=== PATIENT | female | born 1995 | race Caucasian/White ===

== ENCOUNTER → 2017-08-06 16:54 | Outpatient (CLI) | payer OTHER, SELFPAY ==
[2017-08-09 20:07] LABS: HSV 1 By PCR Negative (Negative)
[2017-08-11 08:45] LABS: HSV 2 By PCR Positive (Negative)
== END ==
PROVIDERS: Visit Provider Obstetrics & Gynecology
DX: N89.8 Other specified noninflammatory disorders of vagina (principal); N76.6 Ulceration of vulva
CPT/HCPCS: 87529

== ENCOUNTER → 2018-12-29 | Outpatient (CLI) | payer OTHER, SELFPAY ==
[2018-12-29 11:46] LABS: hCG Titer Quant., Serum < 1 mIU/mL (1-3)
== END | disposition home or self-care (01) ==
LOC: WOBLAB 09:04
PROVIDERS: Family Provider Family Medicine; PCP Family Medicine; Visit Provider Obstetrics & Gynecology
DX: Z30.42 Encounter for surveillance of injectable contraceptive (principal); Z79.899 Other long term (current) drug therapy
CPT/HCPCS: 36415; 84144; 84702

== ENCOUNTER → 2020-07-27 | Outpatient (CLI) | payer OTHER, SELFPAY ==
[2020-08-03 03:07] LABS: Chlamydia By Nucleic Acid AMP Negative (Negative)
[2020-08-03 09:54] LABS: Gonococcus By Nucleic Acid AMP Negative (Negative)
[2020-08-03 09:55] LABS: HPV Reflexed? NOT INDICATED
== END | disposition home or self-care (01) ==
LOC: LABSPEC 12:03
PROVIDERS: PCP Family Medicine; Visit Provider Obstetrics & Gynecology
DX: Z12.4 Encounter for screening for malignant neoplasm of cervix (principal); Z11.3 Encounter for screening for infections with a predominantly sexual mode of transmission
CPT/HCPCS: 87491; 87591; 88142

== ENCOUNTER → 2023-05-20 | Outpatient (CLI) | payer BC, SELFPAY ==
[2023-05-20 17:59] LABS: Absolute Lymphocyte Count 1.76 X10^3/uL (0.83-4.51); Absolute Neutrophil Count 3.2 X10^3/uL (2.0-7.7); Basophil# 0.03 X10^3/uL; Basophil% 0.5 % (0-1); Eosinophil# 0.09 X10^3/uL; Eosinophils% 1.6 % (0-5); Hematocrit 43.8 % (37-47); Hemoglobin 14.6 g/dL (12.0-15.0); Lymphocyte # 1.76 X10^3/ul (0.83-4.51); Lymphocyte % 31.7 % (19-41); Mean Corp Hgb Conc 33.3 g/dL (32-36); Mean Corpuscular Hgb 29.9 pg (27.0-32.0); Mean Corpuscular Volume 89.8 fL (81-99); Mean Platelet Vol. 11.2 fl (6.2-12.0); NRBC Flagged by Analyzer 0 % (0-5); Neutrophil # 3.16 X10^3/uL (2.7-7.7); Neutrophil % 56.8 % (47-70); Platelet Count 218 K/mm3 (150-450); RBC Distribution Width CV 11.8 % (11.6-14.6); RBC Distribution Width SD 38.3 fl (35.1-43.9); Red Blood Count 4.88 M/mm3 (4.2-5.4); White Blood Count 5.6 K/mm3 (4.4-11.0)
[2023-05-20 18:11] LABS: ALB/GLOB Ratio 1.1 RATIO (0.9-2.4); AST(SGOT) 24 U/L (15-37); Alanine Aminotransfer ALT/SGPT 28 U/L (13-56); Alkaline Phosphatase 60 U/L (45-117); Anion Gap 7 (5-15); BUN 9 mg/dL (7-18); BUN/Creat Ratio 12.4 RATIO (10-20); Calcium,Total 8.6 mg/dL (8.5-10.1); Chloride 108 mmol/L (98-107); Creatinine, Serum 0.73 mg/dL (0.55-1.02); EST Glomerular Filtration Rate 102 mL/min (>60); Est Glom Filt Rate - Afr Amer 123 mL/min (>60); Globulin 3.7 g/dL (2.2-4.2); Glucose 89 mg/dL (74-106); Potassium 3.5 mmol/L (3.5-5.1); Protein, Total 7.7 g/dL (6.4-8.2); Rheumatoid Factor < 10.0 IU/mL (<15); Sodium Level 140 mmol/L (136-145)
[2023-05-20 18:39] LABS: Erythrocyte Sedimentation Rate 11 mm/hr (0-30)
[2023-05-20 18:45] LABS: Hepatitis B Surface Antibody Non-Reactive; Hepatitis B Surface Antigen Non-Reactive (Nonreactive); Hepatitis C Antibody Non-Reactive (Nonreactive)
[2023-05-22 12:09] LABS: ANTINUCLEAR ANTIBODIES DIRECT Negative (Negative); CCP IgG Antibodies 3 units (0-19)
== END | disposition home or self-care (01) ==
PROVIDERS: Referring Provider Internal Medicine Rheumatology; Visit Provider Internal Medicine Rheumatology
DX: L40.59 Other psoriatic arthropathy (principal); M79.7 Fibromyalgia
CPT/HCPCS: 36415; 80053; 85025; 85652; 86038; 86140; 86200; 86431; 86706; 86803; 87340

== ENCOUNTER → 2023-06-18 | Outpatient (CLI) | payer BC, SELFPAY ==
[2023-06-18 15:17] LABS: Internal QC Validated? YES +Cl - CLEAR BKGD; Pregnancy, Urine Negative Negative
== END | disposition home or self-care (01) ==
LOC: MTLAB 14:03
PROVIDERS: Referring Provider Internal Medicine Rheumatology; Visit Provider Internal Medicine Rheumatology
DX: L40.59 Other psoriatic arthropathy (principal); M79.7 Fibromyalgia; Z79.899 Other long term (current) drug therapy
CPT/HCPCS: 81025

== ENCOUNTER → 2024-03-06 | Outpatient (CLI) | payer BC, SELFPAY ==
[2024-03-09 21:07] LABS: Chlamydia By Nucleic Acid AMP Negative (Negative); Gonococcus By Nucleic Acid AMP Negative (Negative)
[2024-03-13 13:36] LABS: HPV Reflexed? NOT INDICATED
== END | disposition home or self-care (01) ==
LOC: LAB 16:42
PROVIDERS: Referring Provider Obstetrics & Gynecology; Visit Provider Obstetrics & Gynecology
DX: Z34.90 Encounter for supervision of normal pregnancy, unspecified, unspecified trimester (principal); Z3A.00 Weeks of gestation of pregnancy not specified
CPT/HCPCS: 87086; 87088; 87491; 87591; 88175; G0145

== ENCOUNTER → 2024-03-18 | Outpatient (CLI) | payer BC, SELFPAY ==
[2024-03-18 17:51] LABS: Absolute Lymphocyte Count 2.01 X10^3/uL (0.83-4.51); Absolute Neutrophil Count 5.9 X10^3/uL (2.0-7.7); Basophil# 0.04 X10^3/uL; Basophil% 0.5 % (0-1); Eosinophils% 2.3 % (0-5); Hematocrit 35.9 % (37-47); Hemoglobin 12.4 g/dL (12.0-15.0); Lymphocyte # 2.01 X10^3/ul (0.83-4.51); Lymphocyte % 22.9 % (19-41); Mean Corp Hgb Conc 34.5 g/dL (32-36); Mean Corpuscular Hgb 30.2 pg (27.0-32.0); Mean Corpuscular Volume 87.3 fL (81-99); Monocyte# 0.62 X10^3/uL; Monocyte% 7.1 % (0-10); NRBC Flagged by Analyzer 0 % (0-5); Neutrophil # 5.86 X10^3/uL (2.7-7.7); Neutrophil % 66.9 % (47-70); Platelet Count 210 K/mm3 (150-450); RBC Distribution Width CV 11.9 % (11.6-14.6); RBC Distribution Width SD 38.3 fl (35.1-43.9); Red Blood Count 4.11 M/mm3 (4.2-5.4); White Blood Count 8.8 K/mm3 (4.4-11.0)
[2024-03-18 18:50] LABS: HIV - WCH Non-Reactive (Nonreactive); Hepatitis B Surface Antigen Non-Reactive (Nonreactive); Hepatitis C Antibody Non-Reactive (Nonreactive); Rubella IgG Reactive (Nonreactive); Syphilis Antibodies Non-reactive
== END | disposition home or self-care (01) ==
LOC: MTLAB 13:54
PROVIDERS: Referring Provider Obstetrics & Gynecology; Visit Provider Obstetrics & Gynecology
DX: Z34.81 Encounter for supervision of other normal pregnancy, first trimester (principal); Z3A.00 Weeks of gestation of pregnancy not specified
CPT/HCPCS: 36415; 85025; 86703; 86762; 86780; 86803; 86850; 86900; 86901; 87340

== ENCOUNTER → 2024-07-01 | Outpatient (CLI) | payer BC, SELFPAY ==
[2024-07-01 10:54] LABS: Absolute Lymphocyte Count 1.53 X10^3/uL (0.83-4.51); Absolute Neutrophil Count 5.7 X10^3/uL (2.0-7.7); Basophil# 0.04 X10^3/uL; Basophil% 0.5 % (0-1); Eosinophil# 0.07 X10^3/uL; Eosinophils% 0.9 % (0-5); Hematocrit 35.6 % (37-47); Hemoglobin 11.8 g/dL (12.0-15.0); Lymphocyte # 1.53 X10^3/ul (0.83-4.51); Lymphocyte % 19.6 % (19-41); Mean Corp Hgb Conc 33.1 g/dL (32-36); Mean Corpuscular Hgb 30.8 pg (27.0-32.0); Mean Platelet Vol. 10.7 fl (6.2-12.0); Monocyte# 0.41 X10^3/uL; Monocyte% 5.2 % (0-10); NRBC Flagged by Analyzer 0 % (0-5); Neutrophil # 5.73 X10^3/uL (2.7-7.7); Neutrophil % 73.3 % (47-70); Platelet Count 193 K/mm3 (150-450); RBC Distribution Width CV 12.5 % (11.6-14.6); RBC Distribution Width SD 42.6 fl (35.1-43.9); Red Blood Count 3.83 M/mm3 (4.2-5.4); White Blood Count 7.8 K/mm3 (4.4-11.0)
[2024-07-01 10:58] LABS: Glucose Challenge Gest 1H 50g 121 mg/dL (70-140)
[2024-07-01 11:33] LABS: HIV - WCH Non-Reactive (Nonreactive); Syphilis Antibodies Non-reactive
== END | disposition home or self-care (01) ==
LOC: BWCLAB 10:02
PROVIDERS: Referring Provider Nurse Practitioner Women's Health; Visit Provider Nurse Practitioner Women's Health
DX: Z34.92 Encounter for supervision of normal pregnancy, unspecified, second trimester (principal); Z3A.22 22 weeks gestation of pregnancy
CPT/HCPCS: 36415; 82950; 85025; 86703; 86780

== ENCOUNTER → 2024-09-17 | Outpatient (CLI) | payer BC, SELFPAY | END | disposition home or self-care (01) | LOC: LABSPEC 11:25 | PROVIDERS: Referring Provider Obstetrics & Gynecology; Visit Provider Obstetrics & Gynecology | DX: Z34.02 Encounter for supervision of normal first pregnancy, second trimester (principal) | CPT/HCPCS: 87081 ==

== ENCOUNTER 2024-09-18 12:10 | Outpatient (CLI) | payer BC, SELFPAY ==
[2024-09-18 12:21] VITALS: BMI 34.4
[2024-09-18 12:35] VITALS: PULSE 76; O2SAT 98
[2024-09-18 12:41] VITALS: BP 129/83; PULSE 92; RESP 17
[2024-09-18 13:15] LABS: ROM Internal Control Test YES-OK TO RESULT pt. (Internal QC); ROM Patient Test Negative (Negative); Record Kit Lot#, ROM+ K3294
--- NOTE | 2024-09-19 08:06 | OB.TRI.HP_ITS ---
HPI - General General Date of Service: 09/18/24 HPI Narrative HUA BAKER, is a 28 F who presents at 37.3 with questionable leaking of fluid. denies vb/ctx. has good fm. Maternal Data Information JOHN Calculator Estimated Delivery Date Method Current WG Current Estimate 10/07/24 LMP (Certain) 37w 3d PFSH PFSH Home Medications ?Medication ?Instructions ?Recorded ?Last Taken ?Type docosahexaenoic acid 200 mg mg PO 02/21/24 Unknown His tory capsule ( DHA) valacyclovir 500 mg tablet 500 mg PO BID #60 tabs 08/1609/18/24 Rx (Valtrex) Allergy/AdvReac Type Severity Reaction Status Date / Time No Known Allergies Allergy Verified 09/18/24 12:30 Family History Grandfather Myocardial infarction Surgical History History of surgery on arm Social History adopted: No household members: spouse and other details: joint custody of step daughter current occupational status: employed 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 current occupational exposures/hazards: No pets and animals: Yes ( taking care of litterbox) pets and animals: cat(s) and dog(s) history of recent travel: Yes ([facility] - October 2023, [place], [place] - December 2023) out of state: Yes out of country: No sexually active: Yes Smoking Status: Never smoker alcohol intake: former details: Socially, not while substance use type: does not use well-balanced diet: daily or most days caffeine: Yes Type: coffee eating out: 1-3 times/week during the past year weight has: remained stable what type of physical activity do you participate in: other details: Dumbbells, body weights frequency: 3-4 times per week duration: 45-60 minutes/day sherrie/spiritism: None seatbelt use: always do you feel safe at home: Yes 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 : yes PP control planned: discussed discussed possible routes of delivery and associated risks: [] special requests: [] Plans Covid status: [] Flu vaccine: [] Tdap vaccine: Rhogam: NA LARC form signed: yes Problem list reviewed and updated with the most current plan of care details and appropriate orders placed. Relevant counseling for the gestational age provided. Continue routine care and follow up unless otherwise noted in visit notes/problem list details OB Flowsheet Initial Weight: Not Recorded Date -?-?-?-?-?-?-?-?-?-?-?-?- EGA Weight BP Urine Prot -?-?-?-?-?-?-?-?-?-?-?-?- Glucose FHR FuHt Pres Dilation -?-?-?-?-?-?-?-?-?-?-?-?- Effaced St Visit Note 03/06/24 -?-?-?-?-?-?-?-?-?-?-?-?- 9w 2d 153 lb 127/78 -?-?-?-?-?-?-?-?-?-?-?-?- 180 -?-?-?-?-?-?-?-?-?-?-?-?- SM- CRL 2.3 cm c ons with LMP 04/01/24 -?-?-?-?-?-?-?-?-?-?-?-?- 13w 0d 156 lb 4 oz 130/83 Nega tive -?-?-?-?-?-?-?-?-?-?-?-?- Negative 147 -?-?-?-?-?-?-?-?-?-?-?-?- JV- CRL measurin g 1 week ahead on the room 2 scan. patient reassured. will not change due date and anatomy scan ordered. 05/07/24 -?-?-?-?-?-?-?-?-?-?-?-?- 18w 1d 161 lb 122/83 -?-?-?-?-?-?-?-?-?-?-?-?- 155 -?-?-?-?-?-?-?-?-?-?-?-?- KW- no vb/lof/ct x. good fm. anatomy US scheduled. 06/03/24 -?-?-?-?-?-?-?-?-?-?-?-?- 22w 0d 162 lb 6 oz 120/82 Nega tive -?-?-?-?-?-?-?-?-?-?-?-?- Negative 161 -?-?-?-?-?-?-?-?-?-?-?-?- MH-No VB, LOF. G ood FM. Larc. Denies concerns 07/01/24 -?-?-?-?-?-?-?-?-?-?-?-?- 26w 0d 169 lb 4 oz 110/68 Nega tive -?-?-?-?-?-?-?-?-?-?-?-?- Negative 160 27 -?-?-?-?-?-?-?-?-?-?-?-?- JV- no lof, vagi nal bleeding, or cramping. gct done today. patient declines flu shot. 07/14/24 -?-?-?-?-?-?-?-?-?-?-?-?- 27w 6d 170 lb 2 oz 112/78 Nega tive -?-?-?-?-?-?-?-?-?-?-?-?- Negative 138 28 -?-?-?-?-?-?-?-?-?-?-?-?- -No VB, LOF. G ood Fm. Few BH CTX, resolve w/rest. 07/29/24 -?-?-?-?-?-?-?-?-?-?-?-?- 30w 0d 174 lb 8 oz 114/77 Nega tive -?-?-?-?-?-?-?-?-?-?-?-?- Negative 140 30 Cephalic -?-?-?-?-?-?-?-?-?-?-?-?- SM- no vb lof go od f nor egaurl ctx 08/13/24 -?-?-?-?-?-?-?-?-?-?-?-?- 32w 1d 177 lb 8 oz 121/76 -?-?-?-?-?-?-?-?-?-?-?-?- 140 33 -?-?-?-?-?-?-?-?-?-?-?-?- KW- no vb/lof/ct x. good fm. Tdap today 08/27/24 -?-?-?-?-?-?-?-?-?-?-?-?- 34w 1d 177 lb 8 oz 120/79 Nega tive -?-?-?-?-?-?-?-?-?-?-?-?- Negative 165 34 -?-?-?-?-?-?-?-?-?-?-?-?- JV- no lof, vagi nal bleeding, or dec fm. no complaints other than states that she had a lot of pain after her tdap shot. 09/08/24 -?-?-?-?-?-?-?-?-?-?-?-?- 35w 6d 179 lb 8 oz 119/79 Trac e -?-?-?-?-?-?-?-?-?-?-?-?- Negative 145 36 Cephalic -?-?-?-?-?-?-?-?-?-?-?-?- KW- no vb/lof/ct x. good fm GBS next visit. V[place] sent to pharmacy. BS US done-cephalic 09/17/24 -?-?-?-?-?-?-?-?-?-?-?-?- 37w 1d 181 lb 6 oz 113/79 Nega tive -?-?-?-?-?-?-?-?-?-?-?-?- Negative 150 38 Cephalic 1 .5 -?-?-?-?-?-?-?-?-?-?-?-?- 60 -2 JV- no lof , vaginal bleeding, or dec fm gbs collected. Notes Visit Date: 07/29/24 Last Updated by: Mariana Gomez MD NST FHR Rate Baby A Baseline: 135 Variability:: Moderate Accelerations:: 15 x 15 Decelerations:: None NST Reactive:: Yes FHR Category:: Category I Uterine Activity:: irregular Assessment & Plan (1) No leakage of amniotic fluid into vagina: COMMENT: rom plus neg. cat 1 tracing d/c home PLAN: Plan Patient presents for triage evaluation secondary to questionable lof. negative rom plus. FHT: Moderate variability reactive no decelerations category I tracing [place]: irreg Contractions Assessment and plan: Reactive NST, reassuring maternal and status patient discharged to home to follow-up as needed and for next appt.. See problem list details for additional plan information. Charges/Coding Procedures Urinary/Genital 52xxx-59xxx: 98256-67 non-stress test Interp
--- NOTE | 2024-09-19 08:06 | OB.TRI.NOTE ---
HPI - General General Date of Service: 09/18/24 HPI Narrative HUA BAKER, is a 28 F who presents at 37.3 with questionable leaking of fluid. denies vb/ctx. has good fm. Maternal Data Information JOHN Calculator Estimated Delivery Date Method Current WG Current Estimate 10/07/24 LMP (Certain) 37w 3d PFSH PFSH Home Medications ?Medication ?Instructions ?Recorded ?Last Taken ?Type docosahexaenoic acid 200 mg mg PO 02/21/24 Unknown History capsule ( DHA) valacyclovir 500 mg tablet 500 mg PO BID #60 tabs 09/08/24 09/18/24 Rx (Valtrex) Allergy/AdvReac Type Severity Reaction Status Date / Time No Known Allergies Allergy Verified 09/18/24 12:30 Family History Grandfather Myocardial infarction Surgical History History of surgery on arm Social History adopted: No household members: spouse and other details: joint custody of step daughter current occupational status: employed 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 current occupational exposures/hazards: No pets and animals: Yes ( taking care of litterbox) pets and animals: cat(s) and dog(s) history of recent travel: Yes ([facility] - October 2023, [place], [place] - December 2023) out of state: Yes out of country: No sexually active: Yes Smoking Status: Never smoker alcohol intake: former details: Socially, not while substance use type: does not use well-balanced diet: daily or most days caffeine: Yes Type: coffee eating out: 1-3 times/week during the past year weight has: remained stable what type of physical activity do you participate in: other details: Dumbbells, body weights frequency: 3-4 times per week duration: 45-60 minutes/day sherrie/confucianism: None seatbelt use: always do you feel safe at home: Yes 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 : yes PP control planned: discussed discussed possible routes of delivery and associated risks: [] special requests: [] Plans Covid status: [] Flu vaccine: [] Tdap vaccine: Rhogam: NA LARC form signed: yes Problem list reviewed and updated with the most current plan of care details and appropriate orders placed. Relevant counseling for the gestational age provided. Continue routine care and follow up unless otherwise noted in visit notes/problem list details OB Flowsheet Initial Weight: Not Recorded Date <del>?</del> EGA Weight BP Urine Prot <del>?</del> Glucose FHR FuHt Pres Dilation <del>?</del> Effaced St Visit Note 03/06/24 <del>?</del> 9w 2d 153 lb 127/78 <del>?</del> 180 <del>?</del> SM- CRL 2.3 cm cons with LMP 04/01/24 <del>?</del> 13w 0d 156 lb 4 oz 130/83 Negative <del>?</del> Negative 147 <del>?</del> JV- CRL measuring 1 week ahead on the room 2 scan. patient reassured. will not change due date and anatomy scan ordered. 05/07/24 <del>?</del> 18w 1d 161 lb 122/83 <del>?</del> 155 <del>?</del> KW- no vb/lof/ctx. good fm. anatomy US scheduled. 06/03/24 <del>?</del> 22w 0d 162 lb 6 oz 120/82 Negative <del>?</del> Negative 161 <del>?</del> MH-No VB, LOF. Good FM. Larc. Denies concerns 07/01/24 <del>?</del> 26w 0d 169 lb 4 oz 110/68 Negative <del>?</del> Negative 160 27 <del>?</del> JV- no lof, vaginal bleeding, or cramping. gct done today. patient declines flu shot. 07/14/24 <del>?</del> 27w 6d 170 lb 2 oz 112/78 Negative <del>?</del> Negative 138 28 <del>?</del> MH-No VB, LOF. Good Fm. Few BH CTX, resolve w/rest. 07/29/24 <del>?</del> 30w 0d 174 lb 8 oz 114/77 Negative <del>?</del> Negative 140 30 Cephalic <del>?</del> SM- no vb lof good f nor egaurl ctx 08/13/24 <del>?</del> 32w 1d 177 lb 8 oz 121/76 <del>?</del> 140 33 <del>?</del> KW- no vb/lof/ctx. good fm. Tdap today 08/27/24 <del>?</del> 34w 1d 177 lb 8 oz 120/79 Negative <del>?</del> Negative 165 34 <del>?</del> JV- no lof, vaginal bleeding, or dec fm. no complaints other than states that she had a lot of pain after her tdap shot. 09/08/24 <del>?</del> 35w 6d 179 lb 8 oz 119/79 Trace <del>?</del> Negative 145 36 Cephalic <del>?</del> KW- no vb/lof/ctx. good fm GBS next visit. Valtrex sent to pharmacy. BS US done-cephalic 09/17/24 <del>?</del> 37w 1d 181 lb 6 oz 113/79 Negative <del>?</del> Negative 150 38 Cephalic 1.5 <del>?</del> 60 -2 JV- no lof, vaginal bleeding, or dec fm gbs collected. Notes Visit Date: 07/29/24 Last Updated by: Mariana Gomez MD NST FHR Rate Baby A Baseline: 135 Variability:: Moderate Accelerations:: 15 x 15 Decelerations:: None NST Reactive:: Yes FHR Category:: Category I Uterine Activity:: irregular Assessment & Plan (1) No leakage of amniotic fluid into vagina: COMMENT: rom plus neg. cat 1 tracing d/c home PLAN: Plan Patient presents for triage evaluation secondary to questionable lof. negative rom plus. FHT: Moderate variability reactive no decelerations category I tracing [place]: irreg Contractions Assessment and plan: Reactive NST, reassuring maternal and status patient discharged to home to follow-up as needed and for next appt.. See problem list details for additional plan information. Charges/Coding Procedures Urinary/Genital 52xxx-59xxx: 12895-69 non-stress test Interp
== END 2024-09-18 13:30 | disposition home or self-care (01) ==
LOC: WPOUT 12:17 → WP 12:18
PROVIDERS: Referring Provider Obstetrics & Gynecology; Visit Provider Obstetrics & Gynecology
DX: Z34.03 Encounter for supervision of normal first pregnancy, third trimester (principal)
CPT/HCPCS: 59025; 59050; 84112; 99221; G0378

== ENCOUNTER 2024-09-30 23:00 | Outpatient (CLI) | payer BC, SELFPAY ==
[2024-09-30 23:08] VITALS: BMI 35.0
[2024-09-30 23:19] VITALS: BP 139/76; PULSE 74
--- NOTE | 2024-10-01 01:15 | OB.TRI.PN ---
Progress Notes Date of Service: 10/01/24 Progress Note: Patient presents for triage evaluation secondary to contractions FHT: 140 Moderate variability reactive no decelerations category I tracing [place]: q 2-3 Contractions Assessment and plan: 39 week false labor n ochange Reactive NST, reassuring maternal and status patient discharged to home to follow-up as scheudled. See problem list details for additional plan information. Charges/Coding Procedures Urinary/Genital 52xxx-59xxx: 80408-00 non-stress test Interp
[2024-10-01 02:58] VITALS: BP 130/83; PULSE 66; RESP 16; TEMP 36.6
[2024-10-01 06:34] LABS: ROM Internal Control Test YES-OK TO RESULT pt. (Internal QC); ROM Patient Test POSITIVE (Negative); Record Kit Lot#, ROM+ K3294
== END 2024-10-01 03:25 | disposition home or self-care (01) ==
LOC: WPOUT 23:06 → WP 23:07
PROVIDERS: Referring Provider Obstetrics & Gynecology; Visit Provider Obstetrics & Gynecology
DX: O47.1 False labor at or after 37 completed weeks of gestation (principal); Z3A.39 39 weeks gestation of pregnancy; Z79.899 Other long term (current) drug therapy
CPT/HCPCS: 59025; 59050; 84112; 99221; G0378

== ENCOUNTER 2024-10-01 06:38 | Inpatient (IN) | payer BC, SELFPAY ==
[2024-10-01] VITALS (38 sets, daily range): BP systolic 98–144; BP diastolic 51–95; PULSE 77–121; RESP 16–18; TEMP 36.6–38.1; O2SAT 92–100; BMI 35.0
[2024-10-01 07:04] LABS: Absolute Lymphocyte Count 1.78 X10^3/uL (0.83-4.51); Absolute Neutrophil Count 9.1 X10^3/uL (2.0-7.7); Basophil# 0.05 X10^3/uL; Basophil% 0.4 % (0-1); Eosinophil# 0.07 X10^3/uL; Eosinophils% 0.6 % (0-5); Hematocrit 36.1 % (37-47); Hemoglobin 12.6 g/dL (12.0-15.0); Lymphocyte # 1.78 X10^3/ul (0.83-4.51); Mean Corp Hgb Conc 34.9 g/dL (32-36); Mean Corpuscular Hgb 30.5 pg (27.0-32.0); Mean Corpuscular Volume 87.4 fL (81-99); Monocyte# 0.76 X10^3/uL; Monocyte% 6.4 % (0-10); NRBC Flagged by Analyzer 0 % (0-5); Neutrophil # 9.09 X10^3/uL (2.7-7.7); Neutrophil % 76.8 % (47-70); Platelet Count 169 K/mm3 (150-450); RBC Distribution Width CV 12.4 % (11.6-14.6); RBC Distribution Width SD 39.5 fl (35.1-43.9); Red Blood Count 4.13 M/mm3 (4.2-5.4); White Blood Count 11.9 K/mm3 (4.4-11.0)
--- NOTE | 2024-10-01 07:48 | HP.PCM.OB_ITS ---
HPI - General General Date of Admission: 10/01/24 HPI Narrative HUA BAKER, is a 28 y/o @ 39 weeks 1 day who presents to L&D with painful contractions and rupture of membranes. She is requesting an epidural. Was found to be 4 cm dilated 2 hours ago. Maternal Data Information JOHN Calculator Estimated Delivery Date Method Current WG Current Estimate 10/07/24 LMP (Certain) 39w 1d [facility] Medical History (Updated 10/01/24 @ 07:[address] Gail Braun, DO) Genital herpes affecting Home Medications ?Medication ?Instructions ?Recorded ?Last Taken ?Type docosahexaenoic acid 200 mg mg PO 02/21/24 09/30/24 Hi story capsule ( DHA) valacyclovir 500 mg tablet 500 mg PO BID #60 tabs 08/1609/30/24 Rx (Valtrex) Allergy/AdvReac Type Severity Reaction Status Date / Time No Known Allergies Allergy Verified 10/01/24 06:01 Family History Grandfather Myocardial infarction Surgical History History of surgery on arm Social History adopted: No household members: spouse and other details: joint custody of step daughter current occupational status: employed 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 current occupational exposures/hazards: No pets and animals: Yes ( taking care of litterbox) pets and animals: cat(s) and dog(s) history of recent travel: Yes ([facility] - October 2023, [place], [place] - December 2023) out of state: Yes out of country: No sexually active: Yes Smoking Status: Never smoker alcohol intake: former details: Socially, not while substance use type: does not use well-balanced diet: daily or most days caffeine: Yes Type: coffee eating out: 1-3 times/week during the past year weight has: remained stable what type of physical activity do you participate in: other details: Dumbbells, body weights frequency: 3-4 times per week duration: 45-60 minutes/day sherrie/mormon: None seatbelt use: always do you feel safe at home: Yes 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 : yes PP control planned: discussed discussed possible routes of delivery and associated risks: [] special requests: [] Plans Covid status: [] Flu vaccine: [] Tdap vaccine: Rhogam: NA LARC form signed: yes Problem list reviewed and updated with the most current plan of care details and appropriate orders placed. Relevant counseling for the gestational age provided. Continue routine care and follow up unless otherwise noted in visit notes/problem list details OB Flowsheet Initial Weight: Not Recorded Date -?-?-?-?-?-?-?-?-?-?-?-?- EGA Weight BP Urine Prot -?-?-?-?-?-?--?-?-?-?-?-?- Glucose FHR FuHt Pres Dilation -?-?-?-?-?-?-?-?-?-?-?-?- Effaced St Visit Note 03/06/24 -?-?-?-?-?-?-?-?-?-?-?-?- 9w 2d 153 lb 127/78 -?-?-?-?-?-?-?-?-?-?-?-?- 180 -?-?-?-?-?-?-?-?-?-?-?-?- SM- CRL 2.3 cm c ons with LMP 04/01/24 -?-?-?-?-?-?-?-?-?-?-?-?- 13w 0d 156 lb 4 oz 130/83 Nega tive -?-?-?-?-?-?-?-?-?-?-?-?- Negative 147 -?-?-?-?-?-?-?-?-?-?-?-?- JV- CRL measurin g 1 week ahead on the room 2 scan. patient reassured. will not change due date and anatomy scan ordered. 05/07/24 -?-?-?-?-?-?-?-?-?-?-?-?- 18w 1d 161 lb 122/83 -?-?-?-?-?-?-?-?-?-?-?-?- 155 -?-?-?-?-?-?-?-?-?-?-?-?- KW- no vb/lof/ct x. good fm. anatomy US scheduled. 06/03/24 -?-?-?-?-?-?-?-?-?-?-?-?- 22w 0d 162 lb 6 oz 120/82 Nega tive -?-?-?-?-?-?-?-?-?-?-?-?- Negative 161 -?-?-?-?-?-?-?-?-?-?-?-?- -No VB, LOF. G oiva FM. Larc. Denies concerns 07/01/24 -?-?-?-?-?-?-?-?-?-?-?-?- 26w 0d 169 lb 4 oz 110/68 Nega tive -?-?-?-?-?-?-?-?-?-?-?-?- Negative 160 27 -?-?-?-?-?-?-?-?-?-?-?-?- JV- no lof, vagi nal bleeding, or cramping. gct done today. patient declines flu shot. 07/14/24 -?-?-?-?-?-?-?-?-?-?-?-?- 27w 6d 170 lb 2 oz 112/78 Nega tive -?-?-?-?-?-?-?-?-?-?-?-?- Negative 138 28 -?-?-?-?-?-?-?-?-?-?-?-?- MH-No VB, LOF. G ood Fm. Few BH CTX, resolve w/rest. 07/29/24 -?-?-?-?-?-?-?-?-?-?-?-?- 30w 0d 174 lb 8 oz 114/77 Nega tive -?-?-?-?-?-?-?-?-?-?-?-?- Negative 140 30 Cephalic -?-?-?-?-?-?-?-?-?-?-?-?- SM- no vb lof go od f nor egaurl ctx 08/13/24 -?-?-?-?-?-?-?-?-?-?-?-?- 32w 1d 177 lb 8 oz 121/76 -?-?-?-?-?-?-?-?-?-?-?-?- 140 33 -?-?-?-?-?-?-?-?-?-?-?-?- KW- no vb/lof/ct x. good fm. Tdap today 08/27/24 -?-?-?-?-?-?-?-?-?-?-?-?- 34w 1d 177 lb 8 oz 120/79 Nega tive -?-?-?-?-?-?-?-?-?-?-?-?- Negative 165 34 -?-?-?-?-?-?-?--?-?-?-?-?- JV- no lof, vagi nal bleeding, or dec fm. no complaints other than states that she had a lot of pain after her tdap shot. 09/08/24 -?-?-?-?-?-?-?-?-?-?-?-?- 35w 6d 179 lb 8 oz 119/79 Trac e -?-?-?-?-?-?-?-?-?-?-?-?- Negative 145 36 Cephalic -?-?-?-?-?-?-?-?-?-?-?-?- KW- no vb/lof/ct x. good fm GBS next visit. Valtrex sent to pharmacy. BS US done-cephalic 09/17/24 -?-?-?-?-?-?-?-?-?-?-?-?- 37w 1d 181 lb 6 oz 113/79 Nega tive -?-?-?-?-?-?-?-?-?-?-?-?- Negative 150 38 Cephalic 1 .5 -?-?-?-?-?-?-?-?-?-?-?-?- 60 -2 JV- no lof , vaginal bleeding, or dec fm gbs collected. 09/23/24 -?-?-?-?-?-?-?-?-?-?-?-?- 38w 0d 182 lb 8 oz 123/75 Trac e -?-?-?-?-?-?-?-?-?-?-?-?- Negative 145 38 Cephalic 2 .5 -?-?-?-?-?-?-?-?-?-?-?-?- 70 -2 SM- no vb lof good fm no reuglar ctx 09/30/24 -?-?-?-?-?-?-?-?-?-?-?-?- 39w 0d 186 lb 116/72 Negative -?-?-?-?-?-?-?-?-?-?-?-?- Negative 140 39 Cephalic 3 .5 -?-?--?-?-?-?-?-?-?-?-?-?- 70 -2 SM- SM- no vb lof good fm no reg ular ctx- increased BH ctx Notes Visit Date: 07/29/24 Last Updated by: Mariana Gomez MD ROS Constitutional Constitutional: Denies change in weight, fatigue, fever(s), headache(s), poor appetite or weakness Eyes Eyes: Denies blurry vision, change in vision, seeing flashes or spots in vision ENT HEENT: Denies dizziness, headache(s), loss taste/smell or sore throat Cardiovascular Cardiovascular: Denies chest pain, dizziness, dyspnea, irregular heart rhythm, leg edema, palpitations, rapid heart rate or vomiting Respiratory/Chest Respiratory/Chest: Denies chest tightness, cough, dyspnea or breast pain Gastrointestinal Gastrointestinal: Denies abdominal pain, anorexia, constipation, cramping, diarrhea, hemorrhoids, vomiting or weight changes Genitourinary Genitourinary: Denies dysuria, flank pain, genital lesions, genital pain, urinar y frequency or urinary urgency Musculoskeletal Musculoskeletal: Denies back pain, difficulty walking, joint pain, limited range of motion, muscle cramps or numbness Integumentary Integumentary: Denies lesions or unusual bruising Neurologic Neurologic: Denies abnormal movements, abnormal speech, dizziness, numbness, seizure-like activity or syncope Psychiatric Psychiatric: Denies anxiety, behavioral changes, change in appetite, change in libido, cognitive impairment, confusion, depression, difficulty concentrating, hallucinations or suicidal thoughts Endocrine Endocrinology: Denies excessive sweating, polydipsia or polyuria Hematologic/Lymphatic Hematologic/Lymphatic: Denies easy bleeding, easy bruising or lymphadenopathy Allergic/Immunologic Allergic/Immunologic: Denies itchy eyes, lip swelling, seasonal rhinorrhea, rhinitis, throat swelling, tongue swelling, eczemia, wheezing or asthma Vital Signs Vital Signs Vital Signs: 10/01/24 06:01 10/01/24 06:01 10/01/24 06:03 Temperature Temperature Source Pulse Rate 77 Respiratory Rate Blood Pressure 141/95 H BP Systolic 141 BP Diastolic 95 Pulse Ox 97 10/01/24 06:03 10/01/24 06:03 10/01/24 06:03 Temperature Temperature Source Temporal Pulse Rate 83 78 Respiratory Rate Blood Pressure BP Systolic BP Diastolic Pulse Ox 10/01/24 06:03 10/01/24 06:03 10/01/24 06:03 Temperature 98.3 F Temperature Source Pulse Rate Respiratory Rate 18 Blood Pressure BP Systolic BP Diastolic Pulse Ox 98 10/01/24 06:57 10/01/24 06:57 10/01/24 07:44 Temperature Temperature Source Pulse Rate 82 91 Respiratory Rate Blood Pressure 136/91 H BP Systolic 136 BP Diastolic 91 Pulse Ox 10/01/24 07:44 10/01/24 07:45 10/01/24 07:45 Temperature Temperature Source Pulse Rate 88 Respiratory Rate Blood Pressure 136/89 H BP Systolic 136 BP Diastolic 89 Pulse Ox 98 Weight Weight: 185 lb 8 oz Body Mass Index (BMI) 35.0 Physical Exam Const alert, oriented x3, no apparent distress and healthy appearing General Appearance: cooperative; Negative for anxious HEENT normocephalic Face and Sinus: normal facial exam Eyes EOMs intact bilaterally and no scleral icterus General Eye: normal appearance of both eyes Neck full ROM and supple Lymph Lymphatic: no lymphadenopathy noted Chest Chest: abnormal inspection of the chest Resp normal respiratory effort Effort and Inspection: able to speak in complete sentences Cardio regular rate GI soft to palpation and non-tender Inspection: gravid Palpation: soft; Negative for tender Amniotic Fluid: ROM+plus Back/Spine no CVA tenderness Extremity normal to inspection, full ROM and no clubbing, cyanosis or edema General Extremity: Negative for calf tenderness or edema Skin Lesions: no lesions Rashes: no rashes Psych mental status grossly normal Labs Labs Labs: Blood Type O POSITIVE Antibody Screen NEGATIVE Hct 36.1 % (37-47) L Hgb 12.6 g/dL (12.0-15.0) Syphilis Total Ab Non-reactive Rubella IgG Antibody Reactive (Nonreactive) Hep Bs Antigen Non-Reactive (Nonreactive) Hepatitis C Antibody Non-Reactive (Nonreactive) Chlamydia DNA (LOIS) Negative (Negative) N.gonorrhoeae DNA (LOIS) Negative (Negative) HIV 1&2 Antibody Non-Reactive (Nonreactive) Glucose 1 Hr 50 gm 121 mg/dL (70-140) Assessment & Plan (1) Active labor at term: (2) Genital herpes: QUALIFIERS: Herpes simplex infection site: vulvovaginitis Qualified Code(s): A60.04 - Herpesviral vulvovaginitis COMMENT: Valtrex PRN, last outbreak end of January 2024. start treating at 36 weeks (3) Supervision of normal : QUALIFIERS: Normal : normal first Trimester: second trimester Qualified Code(s): Z34.02 - Encounter for supervision of normal first , second trimester COMMENT: [id number], JOHN 10/10/24,boy Zafar : Tejinder (Has joint custody of step-daughter) (4) : QUALIFIERS: Weeks of gestation: 39 weeks Qualified Code(s): Z3A.39 - 39 weeks gestation of COMMENT: Neg GBS. NIPT low risk, carrier and ntd screening declined. nl anatomy PLAN: Plan Patient presents IAL, plan expectant management for , pitocin/AROM PRN if ne eded. Pain management: plans epidural. GBS positive plan IV PCN. Management of any complications: none I have reviewed the [facility] and made any clinically relevant updates.
[2024-10-01] MEDS: Lactated Ringers 1,000 ML 200 ML IV ×2 (07:55→10:24)
[2024-10-01] MEDS: fentaNYL-bupivacaine (epidural) 100 ML BAG EPIDURAL (07:58)
[2024-10-01] MEDS: Oxytocin 15 Units/NS 250ml 15 UNITS/250 ML IV.SOLN 83 UNITS IV (12:22)
[2024-10-01] MEDS: Oxytocin 10 UNITS/ML Vial IM (12:22)
[2024-10-01 13:30] LABS: Syphilis Antibodies Nonreactive (Nonreactive)
[2024-10-01] MEDS: Ibuprofen 600 MG Tablet PO ×2 (14:49→21:09)
--- NOTE | 2024-10-01 15:07 | EX.PCM.OBVAG ---
Assessment & Plan (1) Active labor at term: (2) ASCUS of cervix with negative high risk HPV: COMMENT: 07/27/2020; Negative 2023 (3) Genital herpes: QUALIFIERS: Herpes simplex infection site: vulvovaginitis Qualified Code(s): A60.04 - Herpesviral vulvovaginitis COMMENT: Valtrex PRN, last outbreak end of January 2024. start treating at 36 weeks (4) Supervision of normal : QUALIFIERS: Normal : normal first Trimester: second trimester Qualified Code(s): Z34.02 - Encounter for supervision of normal first , second trimester COMMENT: [id number], JOHN 10/10/24,boy Zafar : Tejinder (Has joint custody of step-daughter) (5) : QUALIFIERS: Weeks of gestation: 39 weeks Qualified Code(s): Z3A.39 - 39 weeks gestation of COMMENT: Neg GBS. NIPT low risk, carrier and ntd screening declined. nl anatomy Maternal Data Information JOHN Calculator Estimated Delivery Date Method Current WG Current Estimate 10/07/24 LMP (Certain) 39w 1d Final JOHN Source: LMP Gestational age: 39 Doctor Who Attended Delivery: Liliana Mcconnell Vaginal Delivery Maternal Presentation Maternal Presentation: Active Labor Vaginal Delivery Information Procedure Performed: Vacuum Assisted Vaginal Delivery Station at time of placement: +3 Number of vacuum pulls: 1 Number of vacuum pop offs: 0 Surgeon/Practitioner: Gail Braun Date of Procedure: 10/01/24 Pre-Procedure Diagnosis: active labor at term, decelerations Post-Procedure Diagnosis: active labor at term, decelerations Type of anesthesia: Epidural Estimated Blood Loss: 200cc Findings Description of procedure: Patient began pushing and decelerations were noted persistently. She was counseled on the risks, benefits, and alternatives for a vacuum assistance. A kiwi vacuum was placed on the infant's head and pulled one time. The delivered the head in the KAYLIE presentation. The head was delivered atraumatically. The anterior and posterior shoulders delivered without complication followed by the rest of the infant and the infant was placed on the maternal abdomen. Delayed cord clamping was employed for approximately 60 seconds. Cord was clamped and cut and gentle traction was applied to the cord and the placenta delivered spontaneously immediately following it was noted to be intact with three-vessel cord. The perineum and vagina were inspected and noted to have a 2nd degree and bilateral vaginal lacerations. These were repaired with a 2-0 vicryl. EBL was 200cc. Patient and tolerated delivery well. Procedure findings: viable male [place] Presentation: Vertex Amniotic Membrane Rupture Type: Spontaneous Amniotic Fluid Description: Clear Placental Delivery Description: Spontaneous Placenta Disposition: [facility] Specimen collected: No Cord Vessel Description: 3 Vessels Cord Entanglement: None A Gender: Male (1 minute): 9 (5 minute): 9 Delayed Cord Clamping: Yes Multi Select Codes Urinary/Genital Urinary/Genital CPT Codes: 90564 Vaginal Delivery [facility]
--- NOTE | 2024-10-01 15:36 | DCINST_ITS ---
Discharge Instructions Diet Discharge Diet: No restrictions DC O2, CPAP, BIPAP needs Home O2 Discharge instructions: No Dressing / Incision Discharge Activity: Return to Normal Activity, May Not Drive (while taking narcotic pain medications.) and May Shower May resume sexual activity in: 4-6 weeks Dressing / Incision Call your doctor if your incision/area has: Continuous Slow Oozing, Sudden Increased Bleeding, Increased Pain/ Swelling, Increased Redness and Foul Smelling Discharge Follow Up Care Please Follow Up With: Gail Braun DO When: Call [phone] to make an appointment with your doctor in 6 weeks. If you had elevated blood pressure or 4th degree laceration, you will need to be seen in 2 weeks. Test Results: Test results from this visit will be discussed in further detail at your follow- up appointment, if applicable. Discharge Plan Admission Admit Date/Time: 10/01/24 06:38 Attending Provider: Gail Braun Primary Care Provider: Care Physician,No Primary Consulting Providers: Mariana Gomez Discharge Orders/Prescriptions Prescriptions: No Action DHA 200 mg capsule PO valacyclovir [Valtrex] 500 mg tablet 500 mg PO BID Qty: 60 2RF Rx Instructions: take twice daily until Referrals / Follow Up: Care Physician,No Primary [Primary Care Provider] -
[2024-10-01] MEDS: Acetaminophen 500 MG Tablet 1000 MG PO (16:29)
[2024-10-02] MEDS: Acetaminophen 500 MG Tablet 1000 MG PO (03:11)
[2024-10-02 03:44] VITALS: BP 102/49; PULSE 81; RESP 15; TEMP 36.5; O2SAT 100
--- NOTE | 2024-10-02 08:17 | PN.OBGYN_ITS ---
Subjective Subjective Patient doing well without complaints. Tolerating PO. Ambulating and voiding without difficulty. Feeding well. Denies chest pain, shortness of breath, calf pain/swelling, fevers, chills, lightheadedness. Objective Data Objective Data Vital Signs: Vital Signs Temp Pulse Resp BP Pulse Ox O2 Del Method 97.7 F L 81 15 102/49 L 100 Room Air 10/02/24 03:44 10/02/24 03:44 10/02/24 03:44 10/02/24 03:44 10/02/24 03:44 10/02/24 03:44 Oxygen Delivery Method Room Air Weight: 185 lb 8 oz Body Mass Index (BMI) 35.0 Intake & Output: Intake and Output for Last 24 Hours 09/30/24 10/01/24 10/02/24 23:59 23:59 23:59 Intake Total 746.67 / 746.67 Output Total 200 / 200 Balance 546.67 / 546.67 Lab / Micro Data Attestation: I reviewed the patient's lab results. 10/01/24 06:40 Labs: Laboratory Results - last 24 hr 10/01/24 06:40: Syphilis Total Ab Cancelled 10/01/24 06:40: Syphilis Total Ab Nonreactive, Blood Type O POSITIVE, Antibody Screen NEGATIVE ROS Constitutional Constitutional: Reports systems reviewed and no addt'l complaints, except as documented; Denies anorexia or headache(s) Cardiovascular Cardiovascular: Reports systems reviewed and no addt'l complaints, except as documented; Denies dizziness, dyspnea, nausea or tachypnea Respiratory/Chest Respiratory/Chest: Reports systems reviewed and no addt'l complaints, except as documented; Denies cough, dyspnea, shortness of breath at rest or tachypnea Gastrointestinal Gastrointestinal: Reports systems reviewed and no addt'l complaints, except as documented; Denies abdominal pain, constipation or nausea Genitourinary Genitourinary: Reports systems reviewed and no addt'l complaints, except as documented; Denies burning urination, difficulty urinating, dysuria, urinary frequency or urinary incontinence Musculoskeletal Musculoskeletal: Reports systems reviewed and no addt'l complaints, except as documented Integumentary Integumentary: Reports systems reviewed and no addt'l complaints, except as documented Neurologic Neurologic: Reports systems reviewed and no addt'l complaints, except as documented; Denies abnormal speech, dizziness or headache(s) Psychiatric Psychiatric: Reports systems reviewed and no addt'l complaints, except as documented Endocrine Endocrinology: Reports systems reviewed and no addt'l complaints, except as documented Hematologic/Lymphatic Hematologic/Lymphatic: Reports systems reviewed and no addt'l complaints, except as documented Physical Exam Const alert, oriented x3 and no apparent distress Neck full ROM Resp normal respiratory effort, normal air movement and no retractions Effort and Inspection: able to speak in complete sentences and symmetric chest movement GI soft to palpation Bladder / Kidney Exam: bladder normal to palpation Uterus Palpation: uterus fundus firm Extremity normal to inspection and full ROM Psych mental status grossly normal, thought process normal and cooperative Assessment & Plan (1) Vaginal delivery: COMMENT: meredith REYES PLAN: s/p PPD # 1 1. routine post delivery care 2. breast feeding- support given 3. rh positive 4. rubella immune 5. Discharge home (2) Active labor at term: (3) ASCUS of cervix with negative high risk HPV: COMMENT: 07/27/2020; Negative 2023 (4) Genital herpes: QUALIFIERS: Herpes simplex infection site: vulvovaginitis Q ualified Code(s): A60.04 - Herpesviral vulvovaginitis COMMENT: Valtrex PRN, last outbreak end of January 2024. start treating at 36 weeks (5) Supervision of normal : QUALIFIERS: Normal : normal first T rimester: second trimester Qualified Code(s): Z34.02 - Encounter for supervision of normal first , second trimester COMMENT: [id number], JOHN 10/10/24,boy Zafar : Tejinder (Has joint custody of step-daughter) (6) : QUALIFIERS: Weeks of gestation: 39 weeks Qualified Code(s): Z 3A.39 - 39 weeks gestation of COMMENT: Neg GBS. NIPT low risk, carrier and ntd screening declined. nl anatomy Charges/Coding Multi Select Codes Urinary/Genital Urinary/Genital CPT Codes: No Charge
[2024-10-02] MEDS: Ibuprofen 600 MG Tablet PO ×2 (08:37→14:38)
[2024-10-02 08:46] VITALS: BP 131/79; PULSE 94; RESP 14; TEMP 36.7; O2SAT 99
[2024-10-02] MEDS: Benzocaine/Lanolin/Aloe Vera 85 GM Spray 1 SPRAY TOPICAL (10:08)
[2024-10-02 12:27] VITALS: BP 113/72; PULSE 88; RESP 16; TEMP 36.6; O2SAT 99
[2024-10-02 14:50] VITALS: RESP 16
== END 2024-10-02 14:50 | disposition home or self-care (01) | DRG 807 ==
LOC: WPOUT 06:56 → WP 12:18
PROVIDERS: Obstetrics & Gynecology; Admitting Provider Obstetrics & Gynecology; Visit Provider Obstetrics & Gynecology
DX: O98.32 Other infections with a predominantly sexual mode of transmission complicating childbirth (principal); Z37.0 Single live birth; A60.04 Herpesviral vulvovaginitis; O70.1 Second degree perineal laceration during delivery; O76 Abnormality in fetal heart rate and rhythm complicating labor and delivery; O99.824 Streptococcus B carrier state complicating childbirth; Z3A.39 39 weeks gestation of pregnancy; Z79.899 Other long term (current) drug therapy
CPT/HCPCS: 59025; 59050; 85025; 86780; 86850; 86900; 86901; 94799; 99221; G0378

== ENCOUNTER → 2024-10-28 | Outpatient (CLI) | payer BC, SELFPAY | END | disposition home or self-care (01) | LOC: LABSPEC 10:57 | PROVIDERS: Referring Provider Obstetrics & Gynecology; Visit Provider Obstetrics & Gynecology | DX: R30.0 Dysuria (principal) | CPT/HCPCS: 87086; 87088 ==

== ENCOUNTER 2025-02-03 11:30 | Outpatient (RCR) | payer BC, SELFPAY ==
--- NOTE | 2024-12-16 15:03 | HP.PTEVAL ---
Patient's Visit Information Visit Information Visit Information: KAREN BAKER is a 28 year old F referred to Physical Therapy by Estrella Masterson CNM with a diagnosis of R10.2 Pelvic and perineal pain. Date of Evaluation: 12/16/24 Physical Therapist: Lauryn Alfaro Visit Plan Frequency: 1x/Week Duration: 3 Months Plan: Karen would benefit from skilled PT intervention to address her concerns and her pelvic pain. She has pelvic floor tightness and weakness we will address with manual therapy and pelvic floor strengthening. We will see her once a week and recommending 12 visits. Next visit will continue pelvic floor work to address tightness. Initiate quick flicks if able. Consider recommending she order dilators? Check low back next visit -history of scoliosis. Upslip? She will need work on supra-pubic region externally as well. Subjective Subjective: She just had her first baby 11 weeks ago. She was doing cross fit during . She started a program a couple weeks ago. A lot of breathing work and walking. was pretty good. She has scoliosis and towards the end she was having back, hip and sciatica pain. She had no pelvic floor problems. Labor was good. They used vacuum assist during delivery. Tearing was between 2nd and 3rd degree tear. A lot of internal stitches. She went back at 4 weeks as she couldn't walk due to the significant vaginal pain. Stitches were not dissolving and she thinks it slowed healing and recovery day. Most of the stitches removed and 5 weeks Estrella Masterson took out another stitch. She was struggling with bowel movements and a lot of sharp pain and bleeding with bowel movements. That pain has gotten better. She can hold back gas. She has not had leaking. A couple of weeks ago she constantly felt like she had to urinate and feeling like she couldn't empty completely. Has improved but not back to normal yet. No bulging. Heaviness and pain vaginally towards the end of the day. She has a lot of pain with sitting on the toilet to urinate. She had a lot of pain during her period which returned last week. Most of her pain is in the superior vaginal area. She feels pain in the pubic symphysis region. Rolling in bed was a problem before. Initially her pain was 8-9/10 but the last couple of weeks has been better but at the worst pain is 5-6/10. Mild discomfort with urination. She can't sit directly with pressure on her perineum. She feels like her pelvic floor is tight. She isn't having much low back pain . Sciatica resolved. She was able to have intercourse with mild pain. Still nursing. She does not plan to have any more children at this point. Her goals are to improve her pain . 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 She had 2 weddings in November. Pain Vagina: Pain Intensity (Out of 10): 5 Pain Intensity Range: 6 Objective Objective: Diastasis 1 finger width above umbilicus and at umbilicus Left upslip - tender at pubic symphysis but worse on right side LAYCOCK 1/0// -difficulty relaxing - minimal contraction superiorly on left side Moderate pelvic floor tightness and tenderness bilaterally layers 2-3 and and right at introitus, moderate tightness superiorly at urethral sphincter on right side POPDI-6 10, CRAD-8 8, ENRIKE-6 19 Difficult to evaluate for prolapse as she was unable to bear down but suspect rectocele grade 1 Did not evaluate low back today Deep breathing- she does well breathing into her belly but on exhale she pushes down into pelvic floor Goals Goal 1:: Karen will be able to sit on the toilet without feeling perineal pain or pressure. Goal Time Frame: 4-6 Weeks Goal 2:: Karen will be able to sit on varying surfaces without feeling vaginal pain or pressure. Goal Time Frame: 4-6 Weeks Goal 3:: Karen will be able to tolerate vaginal penetration without pain during or after. Goal Time Frame: 6-8 Weeks Goal 4:: Karen will be able to return to her workouts in Cross fit without symptoms in her pelvic region, perineum. Goal Time Frame: 12-16 Weeks Goal 5:: Karen will have 3/10/10/10 strength in her pelvic floor allowing her to brace for stability with activities such as lifting, bending or squatting to care for her baby. Goal Time Frame: 12-16 Weeks Goal 6:: Karen will be able to tolerate her job duties of being on her feet, bending and squatting without vaginal discomfort during or after a photo shoot. Goal Time Frame: 8-12 Weeks Rehabilitation Potential Physical Therapy Diagnosis: R10.2 Pelvic and perineal pain Rehabilitation Potential: Excellent Anticipated Interventions Patient/Client Instruction: Educate patient on: Condition and Plan of Care For the Purpose of:: To decrease pain, To improve muscle performance and motor function, To improve health and function and To improve self management Therapeutic Exercise to Include: Strength training, Neuromotor development and Relaxation training For the Purpose of:: To improve muscle performance and motor function, To improve health and function and To improve self management Manual Therapy Techniques to Include: Trigger point massage, Scar massage, Mobilization and Soft tissue mobilization For the Purpose of:: To decrease pain, To improve muscle performance and motor function, To improve health and function and To improve self management Text: Thank you for the opportunity to evaluate your patient. For Medicare and Medicare HMO plans, please review the plan of care and approve it. It will need to be FAXED BACK to us at [phone] for Medicare purposes. For Medicare only, by signing this I certify the plan of care. Please let me know if there are questions or concerns regarding this plan of care. Physician Signature: Date:
--- NOTE | 2025-02-03 13:28 | HP.PTDCSUM_ITS ---
Discharge Summary D/C summary: It has been my pleasure to treat KARNE BAKER referred by Estrella Masterson CNM, with the diagnosis of R10.2 Pelvic and perineal pain for a total of 7 visit(s). Discharge Date: 02/03/25 Please see the following information for a summary of their discharge status. Subjective Subjective: She feels ready for discharge and feels she has the groundwork to continue things on her own with dilators and pelvic floor strengthening exercis es at home. She wants to work on her tailbone area today. Pain averaging 1- 2/10. She notices the tailbone pain mainly with movement. Sitting on certain surfaces can still cause mild perineum pulling and discomfort but much better overall and sitting on toilet much better. Penetration pain tolerable and much milder 2/10. No incontinence. Pain Vagina: Pain Intensity (Out of 10): 2 Overall Improvement % Improvement: 80 Objective Objective/Function: She is doing really well. Pain has decreased overall at her perineum. She is progressing thru her pelvic floor strengthening and feels ready to continue things on her own at this point. She reports 80% improvement and is very pleased with her progress. Goals Goal 1:: Karen will be able to sit on the toilet without feeling perineal pain or pressure. Goal Progress: 85% improved Goal 2:: Karen will be able to sit on varying surfaces without feeling vaginal pain or pressure. Goal Progress: Goal Met Goal 3:: Karen will be able to tolerate vaginal penetration without pain during or after. Goal Progress: 65% Goal 4:: Karen will be able to return to her workouts in Cross fit without symptoms in her pelvic region, perineum. Goal Progress: 80% Goal 5:: Karen will have 3//10/10 strength in her pelvic floor allowing her to brace for stability with activities such as lifting, bending or squatting to care for her baby. Goal 6:: Karen will be able to tolerate her job duties of being on her feet, bending and squatting without vaginal discomfort during or after a photo shoot. Goal Progress: Goal Met Plan Plan: Discharging patient from PT as she does not feel she needs to continue and has reached her visit limit from first insurance authorization. D/C Information Discharge Comments: She plans to continue the exercises on her own. She reports 80% improvement overall since starting. She is very pleased with her progress in PT and does not feel she needs to continue. She will call with any questions or if she needs to return in the future. d/c sentence: If there are questions or concerns regarding this patient's physical therapy, please feel free to call me at [phone]. Thank you for the referral of this patient. Sincerely, Lauryn Alfaro Balance/Gait/Functional tests Improvement % Improvement: 80
== END 2025-02-03 19:00 | disposition home or self-care (01) ==
LOC: PT 11:30
PROVIDERS: Referring Provider Advanced Practice Midwife; Visit Provider Advanced Practice Midwife
DX: R10.2 Pelvic and perineal pain (principal)
CPT/HCPCS: 97110; 97112; 97140; 97162; 97530